=== PATIENT | female | born 1945 | race Caucasian/White ===

== ENCOUNTER 2021-07-19 15:11 | Inpatient (IN) ==
[2021-07-19] MEDS ORDERED: Melatonin 3 MG TABLET PO PRN (18:36)
[2021-07-19] MEDS ORDERED: Acetaminophen 325 MG TABLET PO PRN (18:36)
[2021-07-19] MEDS ORDERED: Ondansetron 4 MG/2 ML VIAL IVP PRN (18:36)
[2021-07-19] MEDS ORDERED: D5% in Water 1,000 ML IVC PRN (18:41)
[2021-07-19] MEDS ORDERED: *HR* Dextrose 50 % in Water (Syg) 50 ML SYRINGE IVP PRN (18:41)
[2021-07-19] MEDS ORDERED: Dextrose Gel 15 GM/37.5 ML TUBE PO PRN ×2 (18:41)
[2021-07-19] MEDS: Gabapentin 300 MG CAPSULE PO SCH (20:09)
[2021-07-19] MEDS: amLODIPine 5 MG TABLET PO SCH (20:09)
[2021-07-20 05:53] LABS: Hematocrit 43.3 % (35.3-44.9); Hemoglobin 13.5 g/dL (11.5-15.4); Mean Corpuscular HGB Conc 31.2 g/dL (31.6-35.5); Mean Corpuscular Hemoglobin 28.7 pg (28.0-33.3); Mean Corpuscular Volume 91.9 fL (83.0-100.0); Mean Platelet Volume 11.3 fL (9.4-12.4); Platelet Count 179 K/mcL (140-400); Red Blood Count 4.71 M/mcL (3.82-4.97); Red Cell Distribution Width 14.6 % (11.5-14.5); White Blood Count 9.2 K/mcL (4.3-11.1)
[2021-07-20 06:22] LABS: Troponin I 0.46 ng/mL (< 0.04)
[2021-07-20 06:23] LABS: Albumin 3.1 g/dL (3.5-5.7); Bilirubin,Total 0.4 mg/dL (0.3-1.0); Magnesium 1.8 mg/dL (1.6-2.6); Phosphorous 3.1 mg/dL (2.7-4.5); Potassium 4.7 mEq/L (3.5-5.1); Total Protein 6.1 g/dL (6.4-8.9)
[2021-07-20] MEDS: *HR* Heparin 5,000 UNIT/ML VIAL SQ SCH ×2 (06:53→12:01)
[2021-07-20] MEDS ORDERED: Isovue-370 500 ML BOTTLE IVP ONE (08:14)
[2021-07-20] MEDS ORDERED: Ringers Solution, Lactated 500 ML IVC SCH ×2 (08:15→09:00)
[2021-07-20] MEDS: FLUoxetine 20 MG CAPSULE PO SCH (09:05)
[2021-07-20] MEDS: Gabapentin 300 MG CAPSULE PO SCH ×2 (09:05→21:16)
[2021-07-20] MEDS: amLODIPine 5 MG TABLET PO SCH (09:05)
[2021-07-20] MEDS: Insulin LISPRO 300 UNITS/3 ML VIAL SUBQ SCH ×3 (09:05→18:31)
[2021-07-20] MEDS: Aspirin Enteric Coated 81 MG Tablet PO SCH (09:05)
[2021-07-20] MEDS: Dexamethasone Sodium Phos/PF 10 MG/ML VIAL IVP SCH (09:05)
[2021-07-20] MEDS ORDERED: Perflutren Lipid Microsphere 1.3 ML in 0.9 % Sodium Chloride 8.7 ML IVP PRN (12:12)
[2021-07-20] MEDS ORDERED: *HR* Heparin 5,000 UNIT/ML VIAL IVP ONE (12:29)
[2021-07-20] MEDS ORDERED: *HR* Heparin 5,000 UNIT/ML VIAL IVP PRN (12:29)
[2021-07-20 14:01] LABS: Heparin anti-factor XA UFH < 0.04 IU/mL (0.30-0.70); INR 1.2; Prothrombin Time 13.3 Seconds (9.4-12.1)
[2021-07-20] MEDS: Heparin 25,000UNIT/250ML 1/2NS 25,000 UNIT/250 ML IV.SOLN IVC SCH (15:02)
[2021-07-20 16:36] LABS: Influenza A PCR Negative (Negative); Influenza B PCR Negative (Negative); Resp. Syncytial Virus PCR Negative (Negative)
[2021-07-20 16:52] LABS: SARS-CoV-2 by PCR (In House) Positive (Negative)
[2021-07-20] MEDS: *HR* Heparin 5,000 UNIT/ML VIAL IVP PRN (22:39)
[2021-07-21 04:14] LABS: Hematocrit 43.7 % (35.3-44.9); Hemoglobin 13.5 g/dL (11.5-15.4); Mean Corpuscular HGB Conc 30.9 g/dL (31.6-35.5); Mean Corpuscular Hemoglobin 28.8 pg (28.0-33.3); Mean Corpuscular Volume 93.4 fL (83.0-100.0); Mean Platelet Volume 11.3 fL (9.4-12.4); Platelet Count 212 K/mcL (140-400); Red Blood Count 4.68 M/mcL (3.82-4.97); Red Cell Distribution Width 14.5 % (11.5-14.5); White Blood Count 10.3 K/mcL (4.3-11.1)
[2021-07-21 04:35] LABS: Magnesium 1.8 mg/dL (1.6-2.6); Phosphorous 3.2 mg/dL (2.7-4.5); Potassium 4.5 mEq/L (3.5-5.1)
[2021-07-21 04:47] LABS: Troponin I 0.67 ng/mL (< 0.04)
[2021-07-21] MEDS: amLODIPine 5 MG TABLET PO SCH (07:41)
[2021-07-21] MEDS: Aspirin Enteric Coated 81 MG Tablet PO SCH (07:41)
[2021-07-21] MEDS: Gabapentin 300 MG CAPSULE PO SCH ×2 (07:41→22:05)
[2021-07-21] MEDS: FLUoxetine 20 MG CAPSULE PO SCH (07:41)
[2021-07-21] MEDS: Dexamethasone Sodium Phos/PF 10 MG/ML VIAL IVP SCH (07:41)
[2021-07-21] MEDS: Insulin LISPRO 300 UNITS/3 ML VIAL SUBQ SCH ×3 (07:45→17:12)
[2021-07-21] MEDS ORDERED: Dexamethasone Sodium Phos/PF 10 MG/ML VIAL IVP ONE (09:00)
[2021-07-21] MEDS: Ipratropium 1 PUFF INHALER IH SCH ×4 (11:25→23:04)
[2021-07-21] MEDS: *HR* Heparin 5,000 UNIT/ML VIAL IVP PRN (12:11)
[2021-07-21] MEDS: Heparin 25,000UNIT/250ML 1/2NS 25,000 UNIT/250 ML IV.SOLN IVC SCH (12:50)
[2021-07-21] MEDS: Benzonatate 100 MG CAPSULE PO SCH ×2 (17:11→22:05)
[2021-07-22 00:43] LABS: Basophils % 0.2 %; Hematocrit 43.3 % (35.3-44.9); Hemoglobin 13.4 g/dL (11.5-15.4); Immature Granulocytes % 0.8 % (0-4); Lymphocytes # 0.5 K/mcL (0.6-4.6); Lymphocytes % 5.4 %; Mean Corpuscular HGB Conc 30.9 g/dL (31.6-35.5); Mean Corpuscular Hemoglobin 29.1 pg (28.0-33.3); Mean Corpuscular Volume 94.1 fL (83.0-100.0); Mean Platelet Volume 11.2 fL (9.4-12.4); Monocytes # 0.4 K/mcL (0.0-1.3); Monocytes % 4.1 %; Neutrophils # 8.9 K/mcL (1.6-8.9); Platelet Count 220 K/mcL (140-400); Red Cell Distribution Width 14.4 % (11.5-14.5); Segmented Neutrophils % 89.5 %
[2021-07-22 00:54] LABS: Heparin anti-factor XA UFH 0.33 IU/mL (0.30-0.70)
[2021-07-22 01:06] LABS: Albumin 2.9 g/dL (3.5-5.7); Albumin/Globulin Ratio 0.9 (1.1-2.2); Bilirubin,Total 0.4 mg/dL (0.3-1.0); Calcium 8.7 mg/dL (8.6-10.3); Globulin 3.1 g/dL (2.4-3.5); Potassium 4.7 mEq/L (3.5-5.1)
[2021-07-22] MEDS: Ipratropium 1 PUFF INHALER IH SCH ×5 (03:24→20:18)
[2021-07-22] MEDS: Aspirin Enteric Coated 81 MG Tablet PO SCH (08:59)
[2021-07-22] MEDS: Dexamethasone Sodium Phos/PF 10 MG/ML VIAL IVP SCH (09:00)
[2021-07-22] MEDS: Benzonatate 100 MG CAPSULE PO SCH ×3 (09:01→21:30)
[2021-07-22] MEDS: Cholecalciferol (D-3) 1,000 UNIT (25MCG) TABLET PO SCH (09:01)
[2021-07-22] MEDS: FLUoxetine 20 MG CAPSULE PO SCH (09:01)
[2021-07-22] MEDS: Gabapentin 300 MG CAPSULE PO SCH ×2 (09:01→21:30)
[2021-07-22] MEDS: amLODIPine 5 MG TABLET PO SCH (09:12)
[2021-07-22] MEDS: Insulin LISPRO 300 UNITS/3 ML VIAL SUBQ SCH ×3 (13:20→21:09)
[2021-07-22] MEDS: Heparin 25,000UNIT/250ML 1/2NS 25,000 UNIT/250 ML IV.SOLN IVC SCH (13:21)
[2021-07-23] MEDS: Ipratropium 1 PUFF INHALER IH SCH ×6 (00:12→20:48)
[2021-07-23 02:24] LABS: Basophils % 0.1 %; Hemoglobin 13.5 g/dL (11.5-15.4); Immature Granulocytes % 0.8 % (0-4); Lymphocytes # 0.6 K/mcL (0.6-4.6); Mean Corpuscular HGB Conc 32.1 g/dL (31.6-35.5); Mean Corpuscular Hemoglobin 29.6 pg (28.0-33.3); Mean Corpuscular Volume 92.1 fL (83.0-100.0); Mean Platelet Volume 11.4 fL (9.4-12.4); Monocytes # 0.6 K/mcL (0.0-1.3); Monocytes % 3.9 %; Neutrophils # 14.1 K/mcL (1.6-8.9); Platelet Count 239 K/mcL (140-400); Red Blood Count 4.56 M/mcL (3.82-4.97); Red Cell Distribution Width 14.3 % (11.5-14.5); Segmented Neutrophils % 91.2 %
[2021-07-23 02:31] LABS: White Blood Count 15.5 K/mcL (4.3-11.1)
[2021-07-23 02:42] LABS: Calcium 9.1 mg/dL (8.6-10.3); Potassium 4.9 mEq/L (3.5-5.1)
[2021-07-23] MEDS: Insulin LISPRO 300 UNITS/3 ML VIAL SUBQ SCH ×5 (07:10→20:30)
[2021-07-23] MEDS: FLUoxetine 20 MG CAPSULE PO SCH (09:14)
[2021-07-23] MEDS: Aspirin Enteric Coated 81 MG Tablet PO SCH (09:14)
[2021-07-23] MEDS: Gabapentin 300 MG CAPSULE PO SCH ×2 (09:14→20:29)
[2021-07-23] MEDS: Benzonatate 100 MG CAPSULE PO SCH ×3 (09:14→20:28)
[2021-07-23] MEDS: amLODIPine 5 MG TABLET PO SCH (09:15)
[2021-07-23] MEDS: Cholecalciferol (D-3) 1,000 UNIT (25MCG) TABLET PO SCH (09:15)
[2021-07-23] MEDS: Dexamethasone Sodium Phos/PF 10 MG/ML VIAL IVP SCH (09:18)
[2021-07-24] MEDS: Ipratropium 1 PUFF INHALER IH SCH ×7 (00:29→23:38)
[2021-07-24 02:26] LABS: Basophils % 0.1 %; Hematocrit 42.5 % (35.3-44.9); Hemoglobin 13.6 g/dL (11.5-15.4); Immature Granulocytes % 0.9 % (0-4); Lymphocytes # 0.5 K/mcL (0.6-4.6); Lymphocytes % 3.1 %; Mean Corpuscular Hemoglobin 29.5 pg (28.0-33.3); Mean Corpuscular Volume 92.2 fL (83.0-100.0); Mean Platelet Volume 11.5 fL (9.4-12.4); Monocytes # 0.6 K/mcL (0.0-1.3); Monocytes % 4.2 %; Platelet Count 239 K/mcL (140-400); Red Blood Count 4.61 M/mcL (3.82-4.97); Red Cell Distribution Width 14.3 % (11.5-14.5); Segmented Neutrophils % 91.7 %; White Blood Count 15.2 K/mcL (4.3-11.1)
[2021-07-24 02:52] LABS: Albumin 2.9 g/dL (3.5-5.7); Bilirubin,Total 0.4 mg/dL (0.3-1.0); Potassium 5.3 mEq/L (3.5-5.1); Total Protein 5.9 g/dL (6.4-8.9)
[2021-07-24] MEDS: Benzonatate 100 MG CAPSULE PO SCH ×3 (08:47→21:27)
[2021-07-24] MEDS: amLODIPine 5 MG TABLET PO SCH (08:47)
[2021-07-24] MEDS: Cholecalciferol (D-3) 1,000 UNIT (25MCG) TABLET PO SCH (08:47)
[2021-07-24] MEDS: Gabapentin 300 MG CAPSULE PO SCH ×2 (08:48→21:27)
[2021-07-24] MEDS: Aspirin Enteric Coated 81 MG Tablet PO SCH (08:48)
[2021-07-24] MEDS: FLUoxetine 20 MG CAPSULE PO SCH (08:48)
[2021-07-24] MEDS: Dexamethasone Sodium Phos/PF 10 MG/ML VIAL IVP SCH (08:49)
[2021-07-24] MEDS: Insulin LISPRO 300 UNITS/3 ML VIAL SUBQ SCH ×4 (08:49→21:28)
[2021-07-24] MEDS: Nystatin POWDER 30 GM BOTTLE TP SCH (21:27)
[2021-07-24] MEDS: *HR* Heparin 5,000 UNIT/ML VIAL SQ SCH (21:27)
[2021-07-25] MEDS: Ipratropium 1 PUFF INHALER IH SCH ×6 (03:15→23:48)
[2021-07-25] MEDS: *HR* Heparin 5,000 UNIT/ML VIAL SQ SCH ×3 (05:32→21:31)
[2021-07-25] MEDS ORDERED: Furosemide 20 MG/2 ML VIAL IVP ONE (09:27)
[2021-07-25] MEDS: Benzonatate 100 MG CAPSULE PO SCH ×3 (10:03→21:29)
[2021-07-25] MEDS: Gabapentin 300 MG CAPSULE PO SCH ×2 (10:03→17:44)
[2021-07-25] MEDS: amLODIPine 5 MG TABLET PO SCH (10:03)
[2021-07-25] MEDS: Aspirin Enteric Coated 81 MG Tablet PO SCH (10:03)
[2021-07-25] MEDS: Cholecalciferol (D-3) 1,000 UNIT (25MCG) TABLET PO SCH (10:03)
[2021-07-25] MEDS: FLUoxetine 20 MG CAPSULE PO SCH (10:04)
[2021-07-25] MEDS: Dexamethasone Sodium Phos/PF 10 MG/ML VIAL IVP SCH (10:04)
[2021-07-25] MEDS: Nystatin POWDER 30 GM BOTTLE TP SCH ×2 (10:05→21:29)
[2021-07-25] MEDS: Insulin LISPRO 300 UNITS/3 ML VIAL SUBQ SCH ×4 (10:06→21:30)
[2021-07-26] MEDS: Ipratropium 1 PUFF INHALER IH SCH ×4 (04:32→16:03)
[2021-07-26] MEDS: *HR* Heparin 5,000 UNIT/ML VIAL SQ SCH ×2 (05:37→14:27)
[2021-07-26 06:10] LABS: Basophils % 0.2 %; Hemoglobin 16.1 g/dL (11.5-15.4); Immature Granulocytes % 0.9 % (0-4); Immature Platelets 8.5 % (1.1-6.1); Lymphocytes # 0.8 K/mcL (0.6-4.6); Lymphocytes % 4.9 %; Mean Corpuscular HGB Conc 32.2 g/dL (31.6-35.5); Mean Corpuscular Hemoglobin 28.7 pg (28.0-33.3); Mean Corpuscular Volume 89.1 fL (83.0-100.0); Mean Platelet Volume 11.9 fL (9.4-12.4); Monocytes # 0.8 K/mcL (0.0-1.3); Monocytes % 4.9 %; Neutrophils # 14.4 K/mcL (1.6-8.9); Platelet Count 199 K/mcL (140-400); Red Blood Count 5.61 M/mcL (3.82-4.97); Red Cell Distribution Width 14.3 % (11.5-14.5); Segmented Neutrophils % 89.1 %; White Blood Count 16.1 K/mcL (4.3-11.1)
[2021-07-26 06:27] LABS: Calcium 9.4 mg/dL (8.6-10.3); Potassium 5.6 mEq/L (3.5-5.1)
[2021-07-26] MEDS: Gabapentin 300 MG CAPSULE PO SCH (08:44)
[2021-07-26] MEDS: Benzonatate 100 MG CAPSULE PO SCH ×2 (08:44→14:28)
[2021-07-26] MEDS: Cholecalciferol (D-3) 1,000 UNIT (25MCG) TABLET PO SCH (08:44)
[2021-07-26] MEDS: FLUoxetine 20 MG CAPSULE PO SCH (08:45)
[2021-07-26] MEDS: Aspirin Enteric Coated 81 MG Tablet PO SCH (08:45)
[2021-07-26] MEDS: Nystatin POWDER 30 GM BOTTLE TP SCH (08:45)
[2021-07-26] MEDS: amLODIPine 5 MG TABLET PO SCH (08:45)
[2021-07-26] MEDS: Insulin LISPRO 300 UNITS/3 ML VIAL SUBQ SCH ×2 (08:46→11:57)
[2021-07-26] MEDS ORDERED: Dexamethasone Sodium Phos/PF 10 MG/ML VIAL IVP SCH (09:00)
[2021-07-26 15:34] LABS: Potassium 4.4 mEq/L (3.5-5.1)
[2021-07-26 16:43] VITALS: BP 112/71; PULSE 94; TEMP 97.9; O2SAT 96
== END 2021-07-26 17:25 | disposition home health service (06) | DRG 177 ==
LOC: 3BNU → SUATTDRO 18:08
PROVIDERS: ADMIT Internal Medicine; ATTEND Family Medicine